=== PATIENT | male | born 1975 | race African-American/Black ===

== ENCOUNTER 2018-07-14 21:14 | Emergency (ER) | payer OTHER ==
[~2018-07-14] VITALS: Ht 177.8 cm; Wt 115.7 kg
--- NOTE | 2018-07-14 23:24 | Diagnostic Imaging Report ---
ANKLE 3VIEW LT - HOPD HISTORY: Ankle pain COMPARISON: None FINDINGS: Bones: No displaced fracture. Osseous alignment is within normal limits. Joints: The joint spaces are well-maintained. Soft tissues: The soft tissues appear unremarkable. IMPRESSION: No acute radiographic abnormality. Signed by: Dr. Mc Simmons M.D. on 07/14/2018 11:21 PM
[2018-07-14 23:48] VITALS: BP 129/91
== END 2018-07-14 23:49 | disposition home or self-care (01) ==
LOC: FSED 21:14
DX: M66.872 Spontaneous rupture of other tendons, left ankle and foot (principal); X50.1XXA Overexertion from prolonged static or awkward postures, initial encounter; Y93.01 Activity, walking, marching and hiking; Y92.488 Other paved roadways as the place of occurrence of the external cause
CPT/HCPCS: 99283